=== PATIENT | female | born 1960 | race Caucasian/White ===

== ENCOUNTER 2021-07-03 15:19 | Emergency (ER) | payer MEDICAID ==
[~2021-07-03] VITALS: Wt 82.8 kg
[~2021-07-03 15:19] MED LIST: CODEINE-GUAIFE120 ML PO; DELTASONE20 M1 PO; ED SEPTRA/2 TAB/BOTT PO; IPRATROPIUM BROM3 M1 IH; MUCINEX1200 MG PO; PULMICORT0.5 MG/2 M IH; ZITHROMAX 250M250 MG PO
[2021-07-03] MEDS ORDERED: MULTIVITAMIN1 EACH PO (15:30)
[2021-07-03 15:51] LABS: BASO # 0.09 (0.02-0.10); EOS # 0.31 (0.04-0.40); EOS % 2.2 % (1.0-5.0); HEMATOCRIT 46.7 % (37.0-47.0); MEAN CELL VOLUME 93 fl (78-100); MEAN CORPUSCULAR HEMOGLOBIN 30 pg (27-31); MEAN CORPUSCULAR HGB CONC 32 g/dL (33-37); MEAN PLATELET VOLUME 9.1 fl (7.4-10.4); MONO # 1.24 (0.20-0.80); NEU # 9.62 (1.40-6.50); PLATELET COUNT 323 K/mm3 (130-400); RED BLOOD COUNT 5.05 M/mm3 (4.10-5.30); RED CELL DISTRIBUTION WIDTH 14.5 % (11.5-14.5); WHITE BLOOD COUNT 14.4 K/mm3 (4.8-10.8)
[2021-07-03 16:01] LABS: ALBUMIN 4.1 g/dL (3.4-4.8); POTASSIUM 4.3 mmol/L (3.5-5.1); SODIUM 137 mmol/L (136-145)
[2021-07-03 16:03] LABS: GLUCOSE 115 mg/dL (65-105)
[2021-07-03 16:05] LABS: CARBON DIOXIDE 22 mmol/L (23-31); TOTAL BILIRUBIN 0.3 mg/dL (0.2-1.2)
[2021-07-03 16:09] LABS: AST-SGOT 23 U/L (5-34)
[2021-07-03 16:10] LABS: ALT/SGPT 33 U/L (0-55)
[2021-07-03 16:11] LABS: LIPASE 14 U/L (8-78)
[2021-07-03 16:19] LABS: TROPONIN-I < 0.03 ng/mL (<0.030)
[2021-07-03 16:54] LABS: D-DIMER 0.7 mg/L FEU (0.15-0.50)
[2021-07-03 18:17] LABS: URINE APPEARANCE HAZY; URINE COLOR YELLOW
[2021-07-03 18:18] LABS: URINE BILIRUBIN NEGATIVE (NEGATIVE); URINE BLOOD NEGATIVE (NEGATIVE); URINE GLUCOSE NEGATIVE (NEGATIVE); URINE KETONE NEGATIVE (NEGATIVE); URINE LEUKOCYTE ESTERASE TRACE (NEGATIVE); URINE NITRATE NEGATIVE (NEGATIVE); URINE PROTEIN(semi-quant) TRACE mg/dL (NEGATIVE); URINE UROBILINOGEN NORMAL (NORMAL)
[2021-07-03] MEDS ORDERED: PROAIR DIGIHAL90 MCG IH (18:42)
[2021-07-03] MEDS ORDERED: ZITHROMAX 250M250 MG PO (18:42)
[2021-07-03 18:43] VITALS: BP 148/63
== END 2021-07-03 18:52 | disposition home or self-care (01) ==
LOC: ED 15:19
PROVIDERS: Physician Assistant
DX: J20.9 Acute bronchitis, unspecified (principal); J43.9 Emphysema, unspecified; R91.1 Solitary pulmonary nodule; Z72.0 Tobacco use
CPT/HCPCS: J1885; Q9967

== ENCOUNTER → 2022-07-16 | Outpatient (CLI) | payer MEDICAID ==
[~2022-07-16] MED LIST changes: +MULTIVITAMIN1 EACH PO; +PROAIR DIGIHAL90 MCG IH
[2022-07-16 15:58] LABS: CALCIUM 9.5 mg/dL (8.3-10.5)
== END ==
LOC: LAB 15:37
PROVIDERS: Family Medicine
DX: J43.9 Emphysema, unspecified (principal); R91.1 Solitary pulmonary nodule

== ENCOUNTER 2022-08-03 18:04 | Emergency (ER) | payer MEDICAID ==
[~2022-08-03] VITALS: Wt 82.8 kg
[2022-08-03 18:56] LABS: BASO # 0.05 K/mm3 (0.02-0.10); EOS # 0.24 K/mm3 (0.04-0.40); EOS % 2.7 % (1.0-5.0); HEMATOCRIT 45.8 % (37.0-47.0); HEMOGLOBIN 14.8 g/dL (12.5-16.0); LYMPH# 3.35 K/mm3 (1.50-4.00); MEAN CELL VOLUME 92 fl (78-100); MEAN CORPUSCULAR HEMOGLOBIN 30 pg (27-31); MEAN CORPUSCULAR HGB CONC 32 g/dL (33-37); MEAN PLATELET VOLUME 9.3 fl (7.4-10.4); MONO # 0.81 K/mm3 (0.20-0.80); PLATELET COUNT 203 K/mm3 (130-400); RED BLOOD COUNT 4.97 M/mm3 (4.10-5.30); WHITE BLOOD COUNT 9.1 K/mm3 (4.8-10.8)
[2022-08-03 19:29] LABS: PARTIAL THROMBOPLASTIN TIME 21.3 SECONDS (21.0-32.0); PROTHROMBIN TIME 9.6 SECONDS (9.0-12.0)
[2022-08-03 19:31] LABS: ALBUMIN 4.2 g/dL (3.4-4.8)
[2022-08-03 19:32] LABS: POTASSIUM 3.8 mmol/L (3.5-5.1); SODIUM 139 mmol/L (136-145)
[2022-08-03 19:33] LABS: CALCIUM 9.9 mg/dL (8.3-10.5)
[2022-08-03 19:34] LABS: GLUCOSE 130 mg/dL (65-105); TOTAL PROTEIN 8.2 g/dL (6.2-8.1)
[2022-08-03 19:35] LABS: CARBON DIOXIDE 22 mmol/L (23-31)
[2022-08-03 19:36] LABS: TOTAL BILIRUBIN 0.3 mg/dL (0.2-1.2)
[2022-08-03 19:39] LABS: AST-SGOT 23 U/L (5-34)
[2022-08-03 19:40] LABS: ALT/SGPT 31 U/L (0-55)
[2022-08-03 19:41] LABS: LIPASE 25 U/L (8-78)
[2022-08-03 19:49] LABS: TROPONIN-I < 0.030 ng/mL (<0.030)
[2022-08-03 20:14] VITALS: BP 148/59
== END 2022-08-03 20:15 | disposition home or self-care (01) ==
LOC: ED 18:04
PROVIDERS: Nurse Practitioner
DX: R07.89 Other chest pain (principal); F17.200 Nicotine dependence, unspecified, uncomplicated; Z20.822 Contact with and (suspected) exposure to COVID-19

== ENCOUNTER → 2022-08-06 | Outpatient (CLI) | payer MEDICAID | LOC: RAD 13:48 | DX: R91.1 Solitary pulmonary nodule (principal); R07.89 Other chest pain; J43.9 Emphysema, unspecified | CPT/HCPCS: Q9967 ==

== ENCOUNTER 2024-06-08 17:21 | Emergency (ER) | payer MEDICAID ==
[~2024-06-08] VITALS: Wt 77.0 kg
[2024-06-08] MEDS ORDERED: NS 1,000 ML IV ONE (17:30)
[2024-06-08 17:39] LABS: BASO # 0.06 K/mm3 (0.02-0.10); EOS # 0.34 K/mm3 (0.04-0.40); EOS % 2.6 % (1.0-5.0); HEMATOCRIT 45.8 % (37.0-47.0); LYMPH# 4.02 K/mm3 (1.50-4.00); MEAN CELL VOLUME 90 fl (78-100); MEAN CORPUSCULAR HEMOGLOBIN 29 pg (27-31); MEAN CORPUSCULAR HGB CONC 33 g/dL (33-37); MONO # 1.23 K/mm3 (0.20-0.80); NEU # 7.17 K/mm3 (1.40-6.50); PLATELET COUNT 271 K/mm3 (130-400); RED CELL DISTRIBUTION WIDTH 15.1 % (11.5-14.5); WHITE BLOOD COUNT 12.8 K/mm3 (4.8-10.8)
[2024-06-08 17:45] LABS: SODIUM 137 mmol/L (136-145)
[2024-06-08 17:46] LABS: CALCIUM 10.3 mg/dL (8.3-10.5)
[2024-06-08 17:47] LABS: GLUCOSE 131 mg/dL (65-105); TOTAL PROTEIN 7.4 g/dL (6.2-8.1)
[2024-06-08] MEDS ORDERED: MAGNESIUM250 M1 PO (17:47)
[2024-06-08 17:48] LABS: CARBON DIOXIDE 23 mmol/L (23-31)
[2024-06-08] MEDS ORDERED: IRON90 MG (17:48)
[2024-06-08] MEDS ORDERED: ELDERBERRY350 MG PO (17:48)
[2024-06-08 17:49] LABS: TOTAL BILIRUBIN 0.2 mg/dL (0.2-1.2)
[2024-06-08 17:53] LABS: AST-SGOT 21 U/L (5-34)
[2024-06-08 17:54] LABS: ALT/SGPT 25 U/L (0-55)
[2024-06-08 18:00] LABS: TROPONIN-I < 0.030 ng/mL (0.00-0.033)
[2024-06-08 18:17] VITALS: BP 134/63
== END 2024-06-08 18:24 | disposition home or self-care (01) ==
LOC: ED 17:21
PROVIDERS: Family Medicine
DX: R07.89 Other chest pain (principal); F17.200 Nicotine dependence, unspecified, uncomplicated

== ENCOUNTER → 2024-08-10 | Outpatient (CLI) | payer MEDICAID ==
[~2024-08-10] MED LIST changes: +ELDERBERRY350 MG PO; +IRON90 MG; +MAGNESIUM250 M1 PO
== END ==
LOC: RAD 14:20
DX: M16.0 Bilateral primary osteoarthritis of hip (principal); M70.61 Trochanteric bursitis, right hip